=== PATIENT | male | born 1975 | race Caucasian/White ===

== ENCOUNTER 2022-07-11 20:43 | Emergency (ER) | payer BC ==
[2022-07-11] MEDS ORDERED: Doxycycline 100 MG Cap PO ONE (21:13)
== END 2022-07-11 21:23 | disposition home or self-care (01) ==
LOC: JP.ED 20:43
DX: S70.361A Insect bite (nonvenomous), right thigh, initial encounter (principal); I10 Essential (primary) hypertension; Z79.899 Other long term (current) drug therapy; W57.XXXA Bitten or stung by nonvenomous insect and other nonvenomous arthropods, initial encounter
CPT/HCPCS: 99281; A9270